=== PATIENT | female | born 1990 | race Hispanic/Latino ===

== ENCOUNTER 2017-12-09 16:05 | Inpatient (IN) | payer OTHER, MEDICAID ==
[~2017-12-09] VITALS: Ht 154.9 cm; Wt 68.5 kg
[2017-12-09] MEDS ORDERED: LACTATED RINGERS 1000ML 1,000 ML IV PRN (18:20)
[2017-12-09] MEDS ORDERED: OXYTOCIN-LR 20 UNITS/1000 ML 1,000 ML IV SCH (18:45)
[2017-12-09 19:22] LABS: HEMATOCRIT 33.7 % (36-48); MEAN CORPUSCULAR HEMOGLOBIN 28.8 pg (27.0-33.0); MEAN CORPUSCULAR VOLUME 84.6 fL (79-99); NUCLEATED RED BLOOD CELLS 0.1 % (0.0-0.19); PLATELET COUNT (AUTO) 298 K/uL (130-400); RED BLOOD CELL COUNT(AUTO) 3.98 MIL/uL (4.00-5.50); RED CELL DISTRIBUTION WIDTH 13.9 % (11.0-15.5); WHITE BLOOD COUNT (AUTO) 8.1 K/uL (4.8-10.8)
[2017-12-09 19:23] LABS: BILIRUBIN,URINE Negative (NEGATIVE); COLOR,URINE Yellow (YELLOW); GLUCOSE, URINE (UA) Negative (NEGATIVE); KETONES,URINE Negative (NEGATIVE); LEUKOCYTE ESTERASE ,URINE Small (NEGATIVE); NITRATE,URINE Negative (NEGATIVE); OCCULT BLOOD,URINE Negative (NEGATIVE); PROTEIN,URINE Negative (NEGATIVE); UROBILINOGEN,URINE 0.2 mg/dL (0.2-1.0)
[2017-12-09 19:24] LABS: APPEARANCE,URINE CLEAR (CLEAR)
[2017-12-09 19:49] LABS: BACTERIA,URINE Few /HPF (None Seen); RBC,URINE 0-1 /HPF (0-1); SQUAMOUS EPITHELIAL CELL,UR Few /HPF (0-2)
[2017-12-09] MEDS ORDERED: SODIUM CHLORIDE 45 ML SPRY NS SCH (21:15)
[2017-12-09] MEDS ORDERED: ACETAMINOPHEN 325 MG TAB PO PRN (21:15)
[2017-12-09] MEDS ORDERED: ACETAMINOPHEN 325 MG TAB ONE (21:30)
[2017-12-10] MEDS ORDERED: LACTATED RINGERS 1000ML 1,000 ML IV ONE (06:09)
[2017-12-10] MEDS ORDERED: OXYTOCIN 10 USP UNITS/ML ONE ×2 (06:09→16:05)
[2017-12-10] MEDS ORDERED: EPHEDRINE SULFATE 50 MG/ML AMPULE IVP PRN (11:00)
[2017-12-10] MEDS ORDERED: LACTATED RINGERS 500 ML 500 ML IV PRN (11:00)
[2017-12-10] MEDS ORDERED: NALOXONE HCL 0.4 MG/1 ML ML IV PRN (11:00)
[2017-12-10] MEDS ORDERED: FENTANYL CITRATE PF 50 MCG/1 ML 2ML VIAL ONE (11:10)
[2017-12-10 16:24] VITALS: BP 136/79
[2017-12-10] MEDS ORDERED: PREN-154 PO (16:42)
[2017-12-10] MEDS ORDERED: WITCH HAZEL 1 PAD TP PRN (17:00)
[2017-12-10] MEDS ORDERED: IBUPROFEN 600 MG TABLET PO PRN (17:00)
[2017-12-10] MEDS ORDERED: ACETAMINOPHEN 325 MG TAB PO PRN (17:00)
[2017-12-10] MEDS ORDERED: LANOLIN 30GM OINTMENT TP PRN (17:00)
[2017-12-10] MEDS ORDERED: BENZOCAINE/LANOLIN/ALOE VERA 60 ML AEROSOL TP PRN (17:00)
[2017-12-10] MEDS ORDERED: ACETAMINOPHEN-CODEINE 300/30MG TAB PO PRN (17:00)
[2017-12-10] MEDS ORDERED: AMMONIA 1 EA AMP IH ONE (17:28)
[2017-12-10 19:56] VITALS: BP 137/75
[2017-12-10] MEDS: DOCUSATE SODIUM 100 MG CAP PO SCH (20:51)
[2017-12-11 00:12] VITALS: BP 112/64
[2017-12-11 03:44] VITALS: BP 115/64
[2017-12-11 06:05] LABS: HEMATOCRIT 34.5 % (36-48); MEAN CORPUSCULAR HEMOGLOBIN 28.4 pg (27.0-33.0); MEAN CORPUSCULAR HGB CONC 33.1 g/dL (32.0-36.0); MEAN CORPUSCULAR VOLUME 85.9 fL (79-99); PLATELET COUNT (AUTO) 278 K/uL (130-400); RED BLOOD CELL COUNT(AUTO) 4.02 MIL/uL (4.00-5.50); RED CELL DISTRIBUTION WIDTH 14.2 % (11.0-15.5); WHITE BLOOD COUNT (AUTO) 12.6 K/uL (4.8-10.8)
[2017-12-11 07:20] VITALS: BP 124/64
[2017-12-11 07:30] LABS: HEPATITIS Bs ANTIGEN SCREEN P Negative (Negative)
[2017-12-11] MEDS: DOCUSATE SODIUM 100 MG CAP PO SCH (08:59)
[2017-12-11 11:06] VITALS: BP 110/66
== END 2017-12-11 15:30 | disposition home or self-care (01) | DRG 807 ==
LOC: LDH 18:15 → WSH 12-10 16:17
PROVIDERS: ADMIT Obstetrics & Gynecology; ATTEND Obstetrics & Gynecology
PROC: 10E0XZZ Delivery of Products of Conception, External Approach (ICD-10-PCS; principal; 2017-12-10)
PROC: 0KQM0ZZ Repair Perineum Muscle, Open Approach (ICD-10-PCS; 2017-12-10)
PROC: 3E0R3BZ Introduction of Anesthetic Agent into Spinal Canal, Percutaneous Approach (ICD-10-PCS; 2017-12-10)
PROC: 00HU33Z Insertion of Infusion Device into Spinal Canal, Percutaneous Approach (ICD-10-PCS; 2017-12-10)
DX: O70.1 Second degree perineal laceration during delivery (principal); Z37.0 Single live birth; Z3A.39 39 weeks gestation of pregnancy
CPT/HCPCS: 36415; 81001; 85027; 86592; 86850; 86900; 86901; 87340; A4314; A4344; A4606; J2590; J3010; J3490; J7120